=== PATIENT | female | born 1955 | race Hispanic/Latino ===

== ENCOUNTER → 2017-10-05 | Outpatient (CLI) | payer OTHER | LOC: MAMMO 10:05 | PROVIDERS: ATTEND Internal Medicine | DX: Z12.31 Encounter for screening mammogram for malignant neoplasm of breast (principal) | CPT/HCPCS: 77067 ==

== ENCOUNTER → 2018-09-25 | Outpatient (CLI) | payer OTHER ==
--- NOTE | 2018-10-04 08:51 | Diagnostic Imaging Report ---
#[id number] - MGSCRBIL #BILATERAL DIGITAL SCREENING MAMMOGRAM WITH CAD: 09/25/2018 CLINICAL: Routine screening. Comparison is made to exams dated: 10/05/2017 mammogram and 08/16/2016 mammogram - [facility]. Current study contains 6 films. There are scattered fibroglandular elements in both breasts. Current study was also evaluated with a Computer Aided Detection (CAD) system. Benign appearing calcifications are noted bilaterally. There is a benign appearing retroareolar mass in the right breast which is stable. No significant masses, calcifications, or other findings are seen in either breast. IMPRESSION: BENIGN There is no mammographic evidence of malignancy. A 1 year screening mammogram is recommended. The patient will be notified by letter of the results. DASHAWN jones/penrad:10/03/2018 12:46:35 Blood Bank Technician: Nohemi GLEASON(R)([place]), [facility] letter sent: Normal Exam Mammogram BI-RADS: 2 Benign
== END ==
LOC: MAMMO 12:27
PROVIDERS: ATTEND Internal Medicine
DX: Z12.31 Encounter for screening mammogram for malignant neoplasm of breast (principal)
CPT/HCPCS: 77067

== ENCOUNTER 2021-01-10 05:59 | Observation (INO) | payer OTHER ==
[2021-01-07 11:06] LABS: BASOPHILS # (AUTO) 0.1 (0.0-0.1); BASOPHILS % 0.7 % (0.0-1.0); EOSINOPHILS # (AUTO) 0.3 (0.0-0.4); EOSINOPHILS % 3.4 % (0.0-6.0); HEMATOCRIT 43.4 % (34.2-44.1); HEMOGLOBIN 13.8 g/dL (12.0-16.0); LYMPHOCYTES # (AUTO) 2.4 (1.0-3.2); MEAN CORPUSCULAR HEMOGLOBIN 29.4 pg (28-32); MEAN CORPUSCULAR HGB CONC 31.8 g/dL (31-35); MEAN CORPUSCULAR VOLUME 92.5 fL (81-99); MONOCYTES # (AUTO) 0.5 (0.2-0.8); MONOCYTES % 5.5 % (4.4-11.3); NEUTROPHILS # (AUTO) 5.3 (2.1-6.9); NEUTROPHILS % 62.2 % (38.7-80.0); PLATELET COUNT 345 x10e3/uL (140-360); RED BLOOD COUNT 4.69 x10e6/uL (3.6-5.1); RED CELL DISTRIBUTION WIDTH 13.1 % (11.7-14.4)
[2021-01-07 11:33] LABS: ANION GAP 14.4 mmol/L (8-16); CALCIUM 8.9 mg/dL (8.4-10.2); CREATININE, SERUM 0.73 mg/dL (0.57-1.11); POTASSIUM 4.4 mmol/L (3.5-5.1)
[~2021-01-10 05:59] MED LIST: TYLENOL EXTRA500 MG PO
[2021-01-10] MEDS ORDERED: SODIUM CHLORIDE 0.9% 50ML 100 ML ONE (06:07)
[2021-01-10] MEDS ORDERED: MUPIROCIN 2% OINT 22 GM TUBE ONE (06:37)
[2021-01-10] MEDS ORDERED: LIDOCAINE HCL 1% LOCAL INJ 20 ML VIAL ONE (06:37)
[2021-01-10] MEDS ORDERED: BUPIVACAINE HCL 0.5% INJ 30 ML VIAL INJ ONE (06:37)
[2021-01-10] MEDS ORDERED: BETAMETHASONE DISODIUM PHOS 6 MG/ML VIAL ONE (06:37)
[2021-01-10] MEDS ORDERED: ALBUTEROL/IPRATROPIUM 3 ML NEB ONE (09:37)
[2021-01-10] MEDS ORDERED: FENTANYL CITRATE/PF 100MCG/2 ML INJ ONE ×2 (10:23→13:12)
[2021-01-10 11:06] VITALS: BP 110/61
[2021-01-10 11:19] VITALS: BP 110/61
[2021-01-10 11:45] VITALS: BP 110/61
[2021-01-10] MEDS: HYDROCODONE/APAP 10MG-325MG TAB PO PRN ×3 (11:53→21:45)
[2021-01-10] MEDS ORDERED: SODIUM CHLORIDE 0.9% 250ML 250 ML ONE (11:54)
[2021-01-10] MEDS: CLINDAMYCIN 300MG 50 ML IV SCH ×2 (11:56→16:43)
[2021-01-10] MEDS ORDERED: SEVOFLURANE INHAL SOLN 250 ML PEN BTL ONE (13:11)
[2021-01-10] MEDS ORDERED: DEXAMETHASONE SOD PHOS INJ 4 MG/ML SDV ONE (13:11)
[2021-01-10] MEDS ORDERED: ONDANSETRON HCL INJ 2MG/ML 2ML 2 MG/ML VIAL ONE (13:11)
[2021-01-10] MEDS ORDERED: PROPOFOL IV EMULSION 10 MG/ML 20 ML VIAL ONE (13:11)
[2021-01-10] MEDS ORDERED: LIDOCAINE HCL 2% LOCAL INJ 5 ML SDV VIAL INJ ONE (13:11)
[2021-01-10] MEDS ORDERED: KETOROLAC TROMETHAMINE 30 MG/ML VIAL ONE (13:11)
[2021-01-10] MEDS ORDERED: POVIDONE IODINE 0.05% 0.05 % ML PO ONE (13:11)
[2021-01-10] MEDS ORDERED: MIDAZOLAM HCL 2 MG/2 ML VIAL ONE (13:12)
[2021-01-10 16:16] VITALS: BP 107/57
[2021-01-10 20:02] VITALS: BP 112/68
[2021-01-10 21:00] VITALS: BP 112/68
[2021-01-11] MEDS: CLINDAMYCIN 300MG 50 ML IV SCH ×2 (00:25→05:22)
[2021-01-11 00:59] VITALS: BP_SYST 100; BP_SYST 161; BP_DIAS 57; BP_DIAS 67
[2021-01-11 05:51] VITALS: BP 128/73
[2021-01-11] MEDS: HYDROCODONE/APAP 10MG-325MG TAB PO PRN ×2 (06:30→11:30)
[2021-01-11 08:19] VITALS: BP 81/68
[2021-01-11 08:33] VITALS: BP 81/68
[2021-01-11 11:59] VITALS: BP 104/55
[2021-01-11] MEDS ORDERED: CLINDAMYCIN HCL 150 MG CAP PO SCH (12:00)
== END 2021-01-11 12:20 | disposition home or self-care (01) ==
LOC: OR 05:59 → PACU V 10:19 → MED/SURG2 10:51
PROVIDERS: ADMIT Internal Medicine; ATTEND Internal Medicine
DX: S93.321A Subluxation of tarsometatarsal joint of right foot, initial encounter (principal); M20.41 Other hammer toe(s) (acquired), right foot; M79.671 Pain in right foot; Q66.211 Congenital metatarsus primus varus, right foot; Z01.810 Encounter for preprocedural cardiovascular examination; Z01.812 Encounter for preprocedural laboratory examination; Z01.818 Encounter for other preprocedural examination; Z20.822 Contact with and (suspected) exposure to COVID-19; K21.9 Gastro-esophageal reflux disease without esophagitis; Z88.8 Allergy status to other drugs, medicaments and biological substances; R09.02 Hypoxemia
CPT/HCPCS: 28285 ×2; 28292; 28730; 36415; 71045; 71046; 73620; 80048; 85025; 93005; 94799 ×2; C1713 ×2; G0378 ×2; J0690; J0720; J1100; J1885; J2001 ×2; J2250; J2405; J2704; J3010; J7050; U0002

== ENCOUNTER 2021-01-18 13:38 | Emergency (ER) | payer OTHER ==
[~2021-01-18] VITALS: Ht 160 cm; Wt 84.4 kg
[2021-01-18 13:56] LABS: BASOPHILS # (AUTO) 0.1 (0.0-0.1); BASOPHILS % 0.6 % (0.0-1.0); EOSINOPHILS # (AUTO) 0.2 (0.0-0.4); EOSINOPHILS % 1.7 % (0.0-6.0); HEMATOCRIT 42.8 % (34.2-44.1); HEMOGLOBIN 14.2 g/dL (12.0-16.0); LYMPHOCYTES % 23.1 % (18.0-39.1); MEAN CORPUSCULAR HEMOGLOBIN 29.4 pg (28-32); MEAN CORPUSCULAR HGB CONC 33.2 g/dL (31-35); MEAN CORPUSCULAR VOLUME 88.6 fL (81-99); MONOCYTES # (AUTO) 0.4 (0.2-0.8); MONOCYTES % 5.1 % (4.4-11.3); NEUTROPHILS # (AUTO) 5.9 (2.1-6.9); NEUTROPHILS % 67.3 % (38.7-80.0); PLATELET COUNT 385 x10e3/uL (140-360); RED BLOOD COUNT 4.83 x10e6/uL (3.6-5.1); RED CELL DISTRIBUTION WIDTH 12.9 % (11.7-14.4)
[2021-01-18] MEDS ORDERED: IOPAMIDOL 370 MG/ML 200 ML INFUS..BTL INJ ONE (14:10)
[2021-01-18] MEDS ORDERED: SODIUM CHLORIDE 0.9% 50ML 50 ML ONE (14:10)
[2021-01-18 14:11] LABS: ANION GAP 14.5 mmol/L (8-16); CALCIUM 9.2 mg/dL (8.4-10.2); CREATININE, SERUM 0.79 mg/dL (0.57-1.11); POTASSIUM 3.5 mmol/L (3.5-5.1)
== END 2021-01-18 16:08 | disposition home or self-care (01) ==
LOC: ER 14:33
DX: R06.00 Dyspnea, unspecified (principal); R42 Dizziness and giddiness; R73.9 Hyperglycemia, unspecified; Z20.822 Contact with and (suspected) exposure to COVID-19
CPT/HCPCS: 36415; 71260; 80048; 85025; 93005; 99284; Q9967; U0002

== ENCOUNTER 2023-12-31 19:24 | Emergency (ER) | payer OTHER ==
[~2023-12-31] VITALS: Ht 160 cm; Wt 81.6 kg
[2023-12-31 20:00] VITALS: PULSE 72; RESP 18; TEMP 98.3
[2023-12-31] MEDS: CYCLOBENZAPRINE HCL 10 MG TAB PO ONE (21:15)
[2023-12-31] MEDS: IBUPROFEN 600 MG TAB PO STA (21:16)
[2024-01-01] MEDS ORDERED: CYCLOBENZAPRINE10 MG PO (00:06)
[2024-01-01 00:42] VITALS: BP 179/93; PULSE 79; RESP 18; TEMP 97.9; O2SAT 100
== END 2024-01-01 00:20 | disposition home or self-care (01) ==
LOC: ER 19:59
DX: M54.2 Cervicalgia (principal); M54.6 Pain in thoracic spine; M54.50 Low back pain, unspecified; S40.011A Contusion of right shoulder, initial encounter; R20.2 Paresthesia of skin; V43.52XA Car driver injured in collision with other type car in traffic accident, initial encounter; Y92.488 Other paved roadways as the place of occurrence of the external cause; I10 Essential (primary) hypertension
CPT/HCPCS: 72125; 72128; 72131; 99284